=== PATIENT | female | born 1990 | race American Indian/Alaskan Native ===

== ENCOUNTER 2019-07-09 09:15 | Outpatient (CLI) | payer OTHER ==
--- NOTE | 2019-07-09 12:23 | Ultrasound Report ---
ULTRASOUND PELVIS COMPLETE ULTRASOUND TRANSVAGINAL INDICATION / CLINICAL INFORMATION: ABNORMAL UTERINE BLEEDING. TECHNIQUE: Transabdominal and transvaginal ultrasound Duplex Color Doppler used: Yes. COMPARISON: None available FINDINGS: UTERUS: Present. - Appearance (if present): No significant abnormality. - Size in cm (if present): 9.1 x 3.5 x 5.1 cm. - Endometrial Complex (if present): Borderline to mildly thickened.. Thickness in cm (if measured) = 1.6 - Mass lesions: None. - Additional findings: None. RIGHT ADNEXA: No significant ovarian cyst or mass. Normal color Doppler blood flow. 2.7 x 3.4 x 3.8 c m. LEFT ADNEXA: No significant ovarian cyst or mass. Normal color Doppler blood flow. 4.3 x 2.0 x 2.7 cm . URINARY BLADDER: No significant abnormality. FREE FLUID: Trace ADDITIONAL FINDINGS: None. IMPRESSION: The endometrium is borderline to mildly thickened measuring 1.6 cm on transvaginal imaging. Consider endometrial hyperplasia. No uterine or endometrial mass is identified on ultrasound Signer Name: Gianfranco Salazra Jr, MD Signed: 07/09/2019 12:19 PM Workstation Name: [id number]
== END 2019-07-09 09:16 | disposition home or self-care (01) ==
LOC: US 09:15
PROVIDERS: ATTEND Obstetrics & Gynecology
DX: N93.9 Abnormal uterine and vaginal bleeding, unspecified (principal)
CPT/HCPCS: 76830; 76856